=== PATIENT | male | born 1935 | race Caucasian/White ===

== ENCOUNTER 2017-09-04 09:42 | Emergency (ER) | payer OTHER ==
[~2017-09-04] VITALS: Ht 182.9 cm; Wt 75.0 kg
[~2017-09-04 09:42] MED LIST: ASPI81TA82 PO; CRES10TA OR; GLUC250C5 PO; METO50 PO; MULT1CHW35 PO; OMEG306C PO; PROP150 PO; RIVA20 PO; VITA5000 PO
[2017-09-04 09:47] VITALS: BP 104/70; PULSE 88; RESP 16; TEMP 98.6; O2SAT 98
[2017-09-04] MEDS ORDERED: SODIUM CHLORID 0.9% 500 ML INJ 500 ML IV ONE (10:30)
[2017-09-04] MEDS ORDERED: SODIUM CHLORIDE 0.9% FLUSH 10 ML FLUSH IVF PRN (10:30)
--- NOTE | 2017-09-04 10:33 | PD ---
HPI Chief Complaint: Dizziness Time Seen by Provider: 10:12 Travel History International Travel<30 days: No Contact w/Intl Traveler<30days: No Traveled to known affect area: No History of Present Illness HPI The patient is a 81-year-old male who presents emergency department for near syncope. The patient was cleaning out the litter box at home when he became lightheaded, dizzy, diaphoretic, and somewhat nauseated. The patient sat down, had what sounds like a near syncopal event, symptoms last approximately 10-15 minutes. The patient called his carbon accountant and spoke with the on-call carbon accountant, Dr. Diaz, who advised him to come the emergency department for further evaluation. The patient is status post cardiac ablation 1 week ago at the [facility] for age fibrillation. The patient is currently on Xarelto and Propafenone. The patient does state he has some nausea with dry heaves and diaphoresis during the near syncopal event, however, states he is currently asymptomatic. The patient denied any chest pain or shortness of breath. He denies any focal deficits of the upper or lower extremities. PFSH Past Medical History Asthma: No Atrial Fibrillation: Yes Heart Rhythm Problems: Yes (AFLUTTER) Cancer: No Cardiovascular Problems: Yes High Cholesterol: Yes Chest Pain: No Congestive Heart Failure: No COPD: No Cerebrovascular Accident: No Diminished Hearing: Yes Endocrine: No Gastrointestinal Disorders: No Genitourinary: No Headaches: No Hypertension: Yes Immune Disorder: No Implanted Vascular Access Dvce: No Musculoskeletal: No Neurologic: Yes Psychiatric: No Reproductive: No Respiratory: Yes (SOB) Immunizations Current: Yes (SHINGLES 2014) Migraines: No Seizures: No Sleep Apnea: No Influenza Vaccination: Yes Past Surgical History Cardiac Surgery: Yes (CRYRO-ABLATION) Other Surgery: No Social History Alcohol Use: No Tobacco Use: No Substance Use: No Allergies-Medications (Allergen,Severity, Reaction): Coded Allergies: No Known Allergies (Unverified , 08/12/15) Reported Meds & Prescriptions Reported Meds & Active Scripts Active Review of Systems Except as stated in HPI: all other systems reviewed are Neg General / Constitutional: No: Fever HENT: Positive: Lightheadedness Cardiovascular: Positive: Irregular Rhythm (history of atrial fibrillation status post cardiac ablation), Diaphoresis, Syncope, No: Chest Pain or Discomfort Gastrointestinal: Positive: Nausea, Vomiting, No: Abdominal Pain Musculoskeletal: Positive: Weakness Neurologic: Positive: Dizziness, Syncope Physical Exam Narrative GENERAL: Awake, alert, pleasant 81-year-old male who appears his stated age and is in no acute respiratory distress. SKIN: Focused skin assessment warm/dry. HEAD: Atraumatic. Normocephalic. EYES: Pupils equal and round. 4 mm bilateral and reactive. ENT: No nasal bleeding or discharge. Mucous membranes pink and moist. NECK: Trachea midline. No JVD. CARDIOVASCULAR: Regular rate and rhythm. No murmur appreciated. Heart rate in the 80s. RESPIRATORY: No accessory muscle use. Clear to auscultation. Breath sounds equal bilaterally. GASTROINTESTINAL: Abdomen soft, non-tender, nondistended. No rebound tenderness. MUSCULOSKELETAL: Ecchymosis noted right inguinal area after ablation 1 week ago. Positive right femoral pulse. NEUROLOGICAL: Awake and alert. No obvious cranial nerve deficits. Motor grossly within normal limits. Normal speech. NIHSS 0. Nonfocal. No drift of the upper or lower extremities. Sensation is symmetric bilaterally. Smile is symmetric. Patient is oriented 5. PSYCHIATRIC: Appropriate mood and affect; insight and judgment normal. Data Data Last Documented VS Vital Signs Date Time Temp Pulse Resp B/P (MAP) Pulse Ox O2 Delivery O2 Flow Rate FiO2 09/04/17 11:43 81 14 130/60 (83) 75 14 123/59 (80) 81 16 113/59 (77) 09/04/17 09:54 99 Room Air 09/04/17 09:47 98.6 Orders Orders Complete Blood Count With Diff (09/04/17 10:24) Comprehensive Metabolic Panel (09/04/17 10:24) Magnesium (Mg) (09/04/17 10:24) Ckmb (Isoenzyme) Profile (09/04/17 10:24) Urinalysis - C+S If Indicated (09/04/17 10:24) Ecg Monitoring (09/04/17 10:24) Iv Access Insert/Monitor (09/04/17 10:24) Oximetry (09/04/17 10:24) Sodium Chloride 0.9% Flush (Ns Flush) (09/04/17 10:30) Orthostatic Vital Signs (09/04/17 10:24) Sodium Chlorid 0.9% 500 Ml Inj (Ns 500 M (09/04/17 10:30) Electrocardiogram (09/04/17 09:59) Labs Laboratory Tests Test 09/04/17 10:41 White Blood Count 6.7 TH/MM3 Red Blood Count 4.46 MIL/MM3 Hemoglobin 14.6 GM/DL Hematocrit 42.7 % Mean Corpuscular Volume 95.7 FL Mean Corpuscular Hemoglobin 32.6 PG Mean Corpuscular Hemoglobin Concent 34.1 % Red Cell Distribution Width 13.5 % Platelet Count 245 TH/MM3 Mean Platelet Volume 8.4 FL Neutrophils (%) (Auto) 67.7 % Lymphocytes (%) (Auto) 17.3 % Monocytes (%) (Auto) 9.9 % Eosinophils (%) (Auto) 4.2 % Basophils (%) (Auto) 0.9 % Neutrophils # (Auto) 4.5 TH/MM3 Lymphocytes # (Auto) 1.2 TH/MM3 Monocytes # (Auto) 0.7 TH/MM3 Eosinophils # (Auto) 0.3 TH/MM3 Basophils # (Auto) 0.1 TH/MM3 CBC Comment DIFF FINAL Differential Comment Urine Color YELLOW Urine Turbidity HAZY Urine pH 6.5 Urine Specific [place] 1.016 Urine Protein TRACE mg/dL Urine Glucose (UA) NEG mg/dL Urine Ketones NEG mg/dL Urine Occult Blood NEG Urine Nitrite NEG Urine Bilirubin NEG Urine Urobilinogen LESS THAN 2.0 MG/DL Urine Leukocyte Esterase NEG Urine RBC LESS THAN 1 /hpf Urine WBC 1 /hpf Urine Squamous Epithelial Cells 1 /hpf Urine Amorphous Sediment FEW Urine Hyaline Casts 8 /lpf Urine Granular Casts 11 /lpf Urine Mucus FEW /lpf Microscopic Urinalysis Comment CULT NOT INDICATED Blood Urea Nitrogen 15 MG/DL Creatinine 1.02 MG/DL Random Glucose 118 MG/DL Total Protein 7.0 GM/DL Albumin 3.3 GM/DL Calcium Level 9.1 MG/DL Magnesium Level 2.3 MG/DL Alkaline Phosphatase 58 U/L Aspartate Amino Transf (AST/SGOT) 19 U/L Alanine Aminotransferase (ALT/SGPT) 19 U/L Total Bilirubin 0.5 MG/DL Sodium Level 140 MEQ/L Potassium Level 3.9 MEQ/L Chloride Level 105 MEQ/L Carbon Dioxide Level 28.5 MEQ/L Anion Gap 7 MEQ/L Estimat Glomerular Filtration Rate 70 ML/MIN Total Creatine Kinase 99 U/L [facility] Medical Decision Making Medical Screen Exam Complete: Yes Emergency Medical Condition: Yes Medical Record Reviewed: Yes Interpretation(s) EKG reveals sinus rhythm with a rate 80. No ischemic changes or ectopy noted. Laboratory Tests Test 09/04/17 10:41 White Blood Count 6.7 TH/MM3 Red Blood Count 4.46 MIL/MM3 Hemoglobin 14.6 GM/DL Hematocrit 42.7 % Mean Corpuscular Volume 95.7 FL Mean Corpuscular Hemoglobin 32.6 PG Mean Corpuscular Hemoglobin Concent 34.1 % Red Cell Distribution Width 13.5 % Platelet Count 245 TH/MM3 Mean Platelet Volume 8.4 FL Neutrophils (%) (Auto) 67.7 % Lymphocytes (%) (Auto) 17.3 % Monocytes (%) (Auto) 9.9 % Eosinophils (%) (Auto) 4.2 % Basophils (%) (Auto) 0.9 % Neutrophils # (Auto) 4.5 TH/MM3 Lymphocytes # (Auto) 1.2 TH/MM3 Monocytes # (Auto) 0.7 TH/MM3 Eosinophils # (Auto) 0.3 TH/MM3 Basophils # (Auto) 0.1 TH/MM3 CBC Comment DIFF FINAL Differential Comment Urine Color YELLOW Urine Turbidity HAZY Urine pH 6.5 Urine Specific [place] 1.016 Urine Protein TRACE mg/dL Urine Glucose (UA) NEG mg/dL Urine Ketones NEG mg/dL Urine Occult Blood NEG Urine Nitrite NEG Urine Bilirubin NEG Urine Urobilinogen LESS THAN 2.0 MG/DL Urine Leukocyte Esterase NEG Urine RBC LESS THAN 1 /hpf Urine WBC 1 /hpf Urine Squamous Epithelial Cells 1 /hpf Urine Amorphous Sediment FEW Urine Hyaline Casts 8 /lpf Urine Granular Casts 11 /lpf Urine Mucus FEW /lpf Microscopic Urinalysis Comment CULT NOT INDICATED Blood Urea Nitrogen 15 MG/DL Creatinine 1.02 MG/DL Random Glucose 118 MG/DL Total Protein 7.0 GM/DL Albumin 3.3 GM/DL Calcium Level 9.1 MG/DL Magnesium Level 2.3 MG/DL Alkaline Phosphatase 58 U/L Aspartate Amino Transf (AST/SGOT) 19 U/L Alanine Aminotransferase (ALT/SGPT) 19 U/L Total Bilirubin 0.5 MG/DL Sodium Level 140 MEQ/L Potassium Level 3.9 MEQ/L Chloride Level 105 MEQ/L Carbon Dioxide Level 28.5 MEQ/L Anion Gap 7 MEQ/L Estimat Glomerular Filtration Rate 70 ML/MIN Total Creatine Kinase 99 U/L Differential Diagnosis Differential diagnosis includes near-syncope, arrhythmia, electrolyte abnormality, vasovagal syncope, cardiogenic sink be, dehydration, orthostatic hypotension. Narrative Course IV was established, labs are drawn and sent, and the patient was placed on cardiac telemetry monitoring and continuous pulse oximetry monitoring. EKG was ordered and interpreted. Orthostatic vital signs were obtained. The patient was administered IV fluid bolus. I discussed the patient with Dr. Diaz at 10 :49 AM who recommends 23 hour observation to the medical service with consult to Dr. Diaz. I discussed these findings with the who is not happy, states she wants cardiology to evaluate the patient right away. I had a discussion with the patient stating that I called the carbon accountant prior to the results of any labs, however, he recommends 23 hour observation to the medical service with consult to cardiology. The patient's states she will call his carbon accountant personally, Dr. Langford. Telemetry monitoring revealed sinus rhythm, at one point it looks like possibly A. fib, however, patient was moving, it appeared to be artifact, when he stopped moving, it was normal sinus rhythm. The patient's labs are unremarkable. Orthostatic vital signs are unremarkable. Patient is reevaluated at 12:40 PM. He is a dramatic. Cardiology recommended 23 hour observation, however, the patient does not want to be a 23 hour observation to the hospital. He was to go home and follow-up with his carbon accountant. The patient will be provided a copy of his labs at discharge. He is advised to return if symptoms worsen or progress. Diagnosis Primary Impression: Near syncope Patient Instructions: General Instructions Additional Instructions: Please provide a patient a copy of his EKG and labs at discharge. Follow-up with your carbon accountant. Return if symptoms worsen or progress. Med/Other Pt SpecificInfo: No Change to Meds Disposition: 01 DISCHARGE HOME Condition: Stable Jacob Rinaldi MD Sep 04, 2017 10:33
[2017-09-04 11:43] VITALS: BP_SYST 113; BP_SYST 123; BP_SYST 130; BP_DIAS 59; BP_DIAS 60; RESP 14; RESP 16
[2017-09-04 12:02] LABS: AUTOMATED NEUTROPHIL # 4.5 TH/MM3 (1.8-7.7); BASOPHIL # 0.1 TH/MM3 (0-0.2); BASOPHIL % 0.9 % (0.0-2.0); EOSINOPHIL # 0.3 TH/MM3 (0-0.4); EOSINOPHIL % 4.2 % (0.0-4.0); HEMATOCRIT 42.7 % (39.0-51.0); HEMOGLOBIN 14.6 GM/DL (13.0-17.0); LYMPH % 17.3 % (9.0-44.0); LYMPHOCYTE # 1.2 TH/MM3 (1.0-4.8); MEAN CELL VOLUME 95.7 FL (80.0-100.0); MEAN CORPUSCULAR HEMOGLOBIN 32.6 PG (27.0-34.0); MEAN CORPUSCULAR HGB CONC 34.1 % (32.0-36.0); MEAN PLATELET VOLUME 8.4 FL (7.0-11.0); MONO % 9.9 % (0.0-8.0); MONOCYTE # 0.7 TH/MM3 (0-0.9); NEUT % 67.7 % (16.0-70.0); PLATELET COUNT 245 TH/MM3 (150-450); RED BLOOD COUNT 4.46 MIL/MM3 (4.50-5.90); RED CELL DISTRIBUTION WIDTH 13.5 % (11.6-17.2); WHITE BLOOD COUNT 6.7 TH/MM3 (4.0-11.0)
[2017-09-04 12:18] LABS: AMORPHOUS SEDIMENT, URINE FEW; BILIRUBIN, URINE NEG (NEG); BLOOD, URINE NEG (NEG); GLUCOSE,URINE NEG (NEG); HYALINE CAST, URINE 8 /lpf (RARE); KETONE, URINE NEG (NEG); MUCUS URINE FEW /lpf (OCC); NITRITE,URINE NEG (NEG); PH, URINE 6.5 (5.0-8.5); SQUAMOUS EPITHELIAL CELL URINE 1 /hpf (0-5); URINE COLOR YELLOW (YELLW/STRAW); URINE LEUKOCYTE ESTERASE NEG (NEG)
[2017-09-04 12:22] LABS: ALBUMIN 3.3 GM/DL (3.4-5.0); AST (GOT) 19 U/L (15-37); BICARBONATE 28.5 MEQ/L (21.0-32.0); BLOOD UREA NITROGEN 15 MG/DL (7-18); CALCIUM 9.1 MG/DL (8.5-10.1); CHLORIDE 105 MEQ/L (98-107); CREATININE 1.02 MG/DL (0.60-1.30); GLOMERULAR FILTRATION RATE 70 ML/MIN (>89); GLUCOSE,RANDOM 118 MG/DL (74-106); MAGNESIUM 2.3 MG/DL (1.5-2.5); SODIUM (NA) 140 MEQ/L (136-145)
[2017-09-04 12:26] LABS: ALKALINE PHOSPHATASE 58 U/L (45-117); ALT (GPT) 19 U/L (12-78); TOTAL BILIRUBIN ADULT 0.5 MG/DL (0.2-1.0)
[2017-09-04 12:44] VITALS: BP 113/59
--- NOTE | 2017-09-04 14:40 | EKG ---
Date Performed: 09/04/2017 Time Performed: 09:59:00 PTAGE: 81 years EKG: Sinus rhythm NORMAL ECG Since PREVIOUS TRACING , no significant change noted PREVIOUS TRACIN03/09/2012 06.04 DOCTOR: Emil Neville Interpretating Date/Time 09/04/2017 14:39:05
== END 2017-09-04 13:01 | disposition home or self-care (01) ==
LOC: NEPE 09:42
DX: R55 Syncope and collapse (principal); R11.2 Nausea with vomiting, unspecified; R53.1 Weakness; R42 Dizziness and giddiness; I48.91 Unspecified atrial fibrillation; I48.92 Unspecified atrial flutter; I10 Essential (primary) hypertension
CPT/HCPCS: 80053; 81001; 82550; 83735; 85025; 93005; 99284; J7040